=== PATIENT | male | born 1955 | race Caucasian/White ===

== ENCOUNTER 2021-02-16 14:36 | Inpatient (IN) | payer OTHER ==
[~2021-02-16] VITALS: Ht 177.8 cm; Wt 107.8 kg
[2021-02-16 16:08] LABS: BASOPHILS ABSOLUTE AUTO 0.03 K/mm3 (0.00-0.23); BASOPHILS PERCENT AUTO 0 % (0-2); EOSINOPHILS ABSOLUTE AUTO 0.02 K/mm3 (0.00-0.68); EOSINOPHILS PERCENT AUTO 0 % (0-6); Hematocrit 41.2 % (37.0-53.0); Hemoglobin 14.1 g/dL (13.5-17.5); IMMATURE GRAN ABSOLUTE AUTO 0.05 K/mm3 (0.00-0.10); IMMATURE GRAN PERCENT AUTO 0 % (0-1); LYMPHOCYTES PERCENT AUTO 9 % (21-46); MONOCYTES ABSOLUTE AUTO 0.97 K/mm3 (0.16-1.47); MONOCYTES PERCENT AUTO 8 % (4-13); Mean Corpuscular HGB 30.6 pg (26.0-34.0); Mean Corpuscular HGB Conc 34.2 g/dL (31.5-36.5); Mean Corpuscular Volume 89 fL (80-100); Mean Platelet Volume 11.5 fL (9.1-12.4); NEUTROPHILS ABSOLUTE AUTO 10.03 K/mm3 (1.96-9.15); NEUTROPHILS PERCENT AUTO 82 % (41-73); Platelet Count 121 K/mm3 (150-400); RDW Coefficient Variation 12.6 % (11.7-14.2); RDW Standard Deviation 41.8 fL (35.1-46.3); Red Blood Cell Count 4.61 M/mm3 (4.30-5.90)
[2021-02-16 16:20] LABS: International Normalized Ratio 1.16; Prothrombin Time Results 12.4 Sec (9.7-11.5)
[2021-02-16 16:42] LABS: Alanine Aminotransfer (ALT/SGP 31 U/L (12-78); Albumin, Blood 3.7 g/dL (3.4-5.0); Alk Phos 54 U/L (50-136); Anion Gap 7 mmol/L (6-16); Aspartate Aminotrans (AST/SGOT 29 U/L (12-37); Bilirubin, Total 0.6 mg/dL (0.1-1.0); Blood Urea Nitrogen 37 mg/dL (8-24); Bun/Creatinine Ratio 35.9 (12.0-20.0); CO2, Blood 22 mmol/L (21-32); Calcium, Blood 8.9 mg/dL (8.5-10.1); Chloride, Blood 108 mmol/L (98-108); Creatinine, Blood 1.03 mg/dL (0.60-1.20); Globulin, Blood 3.6 g/dL (2.2-4.0); Glomerular Filtration Rate >60 (60-); Glucose, Blood 205 mg/dL (70-99); Sodium, Blood 137 mmol/L (136-145); Total Protein, Blood 7.3 g/dL (6.4-8.2); Troponin I <0.015 ng/mL (0.000-0.040)
[2021-02-16] MEDS ORDERED: GABA100 PO (17:14)
[2021-02-16] MEDS ORDERED: METF500 PO (17:15)
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
--- NOTE | 2021-02-17 04:36 | NUR ---
CREEL CLERK SUMMARY PT RESTING, IN NAD. NO ACUTE CHANGES IN NEURO STATUS SINCE ARRIVAL TO MEDICAL FLOOR; PT DENIES QIU, NUMBNESS/TINGLING. NO CARDIAC EVENTS REPORTED OVERNIGHT. APPEARED TO SLEEP WELL T/O NIGHT. NO FURTHER EPISODES OF EMESIS. NO ACUTE NEEDS ASSESSED AT THIS TIME. CALL LIGHT, POSSESSIONS IN REACH, BED IN LOW AND LOCKED POSITION WITH ALARMS ON. WILL CONTINUE TO PROVIDE CARE UNTIL HANDOFF GIVEN TO ONCOMING RN.
[2021-02-17 05:51] LABS: BASOPHILS ABSOLUTE AUTO 0.05 K/mm3 (0.00-0.23); BASOPHILS PERCENT AUTO 0 % (0-2); EOSINOPHILS ABSOLUTE AUTO 0.05 K/mm3 (0.00-0.68); EOSINOPHILS PERCENT AUTO 0 % (0-6); Hematocrit 41.6 % (37.0-53.0); Hemoglobin 13.9 g/dL (13.5-17.5); IMMATURE GRAN ABSOLUTE AUTO 0.05 K/mm3 (0.00-0.10); IMMATURE GRAN PERCENT AUTO 0 % (0-1); LYMPHOCYTES ABSOLUTE AUTO 1.69 K/mm3 (0.84-5.20); LYMPHOCYTES PERCENT AUTO 15 % (21-46); MONOCYTES ABSOLUTE AUTO 0.98 K/mm3 (0.16-1.47); MONOCYTES PERCENT AUTO 8 % (4-13); Mean Corpuscular HGB 30.7 pg (26.0-34.0); Mean Corpuscular HGB Conc 33.4 g/dL (31.5-36.5); Mean Corpuscular Volume 92 fL (80-100); Mean Platelet Volume 11.2 fL (9.1-12.4); NEUTROPHILS ABSOLUTE AUTO 8.81 K/mm3 (1.96-9.15); NEUTROPHILS PERCENT AUTO 76 % (41-73); Platelet Count 113 K/mm3 (150-400); RDW Coefficient Variation 12.5 % (11.7-14.2); RDW Standard Deviation 42.5 fL (35.1-46.3); Red Blood Cell Count 4.53 M/mm3 (4.30-5.90); White Blood Cell Count 11.63 K/mm3 (4.00-11.30)
[2021-02-17 06:18] LABS: Alanine Aminotransfer (ALT/SGP 29 U/L (12-78); Albumin, Blood 3.4 g/dL (3.4-5.0); Alk Phos 52 U/L (50-136); Anion Gap 8 mmol/L (6-16); Aspartate Aminotrans (AST/SGOT 19 U/L (12-37); Bilirubin, Total 0.7 mg/dL (0.1-1.0); Blood Urea Nitrogen 34 mg/dL (8-24); Bun/Creatinine Ratio 30.6 (12.0-20.0); CHOL/HDL RATIO 2.4; CO2, Blood 22 mmol/L (21-32); Chloride, Blood 108 mmol/L (98-108); Cholesterol 101 mg/dL (50-200); Creatinine, Blood 1.11 mg/dL (0.60-1.20); Globulin, Blood 3.5 g/dL (2.2-4.0); Glomerular Filtration Rate >60 (60-); Glucose, Blood 176 mg/dL (70-99); HDL Cholesterol 42 mg/dL (>39); LDL/HDL RATIO 0.8; Low Density Lipoprotein Chol 33 mg/dL (0-110); Potassium, Blood 3.9 mmol/L (3.5-5.5); Sodium, Blood 138 mmol/L (136-145); Total Protein, Blood 6.9 g/dL (6.4-8.2); Triglycerides 130 mg/dL (30-160); Very Low Density Lipoprot Chol 26 mg/dL (6-32)
--- NOTE | 2021-02-18 02:26 | NUR ---
REPORT GIVEN TO BRANDO CORADO. NO ACUTE CHANGES SINCE CHANGE OF SHIFT. PATIENT ALTERT AND ORIENTED, ABLE TO MAKE NEEDS KNOWN. MEDICATED FOR NAUSEA X1. BED LOW AND LCOKED LUIS LIGHT WITHIN REACH, BED ALARM SET. HE IS A 1 PERSON SBA TO THE BATHROOM WITH WALKER.
--- NOTE | 2021-02-18 02:49 | NUR ---
RECEIVED REPORT FROM MICKIE SOLER. ASSUMED CARE OF PT. WILL PROVIDE CARE THE REST OF SHIFT.
--- NOTE | 2021-02-18 06:17 | NUR ---
SHIFT SUMMARY: A/O. KNOWS LIMITATIONS. USES CALL LT APPROPRIATELY. 1PA TO BR USING FWW. LEFT ARM FLACCID WITH L SIDE WEAKNESS. PT ABLE TO STAND AND WALK WITH ASSISTANCE. IMPROVING. MEDS WHOLE ONE AT A TIME WITH WATER. SINUS AT 74 WITH PAC'S. NO ACUTE CHANGES. PLAN IS SNF AT DISCHARGE. WILL CONTINUE TO PROVIDE CARE UNTIL SHIFT REPORT.
--- NOTE | 2021-02-18 17:25 | NUR ---
SHIFT SUMMARY PT AOX3; INTERMITTENT CONFUSION; FLACCID ON LEFT SIDE AND IMPULSIVE AT TIMES. PT AT BEDSIDE TODAY AND UPDATED. PT STATED THAT SHE WOULD LIKE FOR HIM TO RECOVER IN SNF. MEDICATED FOR NAUSEA X1. ON TELE NS. BED IS IN THE LOWEST POSITION AND CALL LIGHT WITHIN REACGH
--- NOTE | 2021-02-19 06:32 | NUR ---
SHIFT SUMMARY PT IS A 65 Y/O MALE, ADMITTED FOR CVA WITH L SIDE DEFICITS. LUE FLACCID, LLE MILD WEAKNESS, NO FACIAL DROOP NOTED. HE IS A&O X 4, 1PA TO THE BATHROOM. VITAL SIGNS STABLE, TELE DC'D. HE WAS MEDICATED ONCE FOR BACK PAIN WITH PRN FENTANYL. NO C/O NAUSEA OR SOB. NO ACUTE CHANGES IN PT CONDITION NOTED. WILL CONTINUE TO MONITOR AND TREAT PER EMAR UNTIL HAND OFF TO DAY SHIFT RN.
--- NOTE | 2021-02-19 17:37 | NUR ---
SHIFT SUMMARY PT AOX3; INTERMITTENT CONFUSION. FLACCID ON LEFT ARM, ABLE TO STAND WITH 1-2 PT ASSISTS WITH GB AND FWW. DENIES ANY PAIN OR SOB. BED IS IN THE LOWEST POSITON AND CALL LIGHT WITHIN REACH
--- NOTE | 2021-02-20 05:15 | NUR ---
SHIFT SUMMARY PT IS 65 Y/O MALE, ADMITTED FOR CVA. HE IS A&O X 3, 1PA OUT OF BED. L-SIDE WEAKNESS WITH LUE FLACCID AND LLE SLIGHTLY WEAKER THAN LEFT. NO C/O ACUTE PAIN, NAUSEA OR SOB. VITAL SIGNS STABLE. NO ACUTE CHANGES IN PT CONDITION NOTED. WILL CONTINUE TO MONITOR AND TREAT PER EMAR UNTIL HAND OFF TO DAY SHIFT RN.
[2021-02-20 16:35] LABS: SARS-Cov-2 (COVID-19) PCR, MMC NEGATIVE (NEGATIVE)
--- NOTE | 2021-02-20 19:45 | NUR ---
shift summary: pt a/o pleasant/cooperative. pt did well today. up to bathroom w/standby assist. covid test negative. plan is to dc tomorrow to snf. no acute concerns.
--- NOTE | 2021-02-21 06:45 | NUR ---
DISCHARGE UPDATE PT WILL BE LEAVING TODAY AT 10AM, DISCHARGE PAPERWORK AND PT COPY OF TRANSFER PAPERWORK PLACED IN FRONT OF PT CHART. WILL RELAY TO ONCOMING NURSE DURING BED HUDDLE.
--- NOTE | 2021-02-21 07:44 | NUR ---
SHIFT SUMMARY NO ACUTE CHANGES. PT ON ROOM AIR. VSS. BACK PAIN TREATED WITH TYLENOL AND HEATING PAD. LOOSE BM THIS AM. AMBULATES WITH 2 PERSON ASSIST, WALKER AND GAIT BELT, L SIDED WEAKNESS SECONDARY TO CVA.
[2021-02-21] MEDS ORDERED: AMLO5 PO (07:56)
[2021-02-21] MEDS ORDERED: ASPIR 8181 M1 PO (07:57)
[2021-02-21] MEDS ORDERED: LISI20 PO (07:57)
[2021-02-21] MEDS ORDERED: ATOR80 PO (07:57)
--- NOTE | 2021-02-21 10:49 | NUR ---
DISCHARGE SUMMARY PT DISCHARGE TO FACILITY THIS SHIFT AT 1001 VIA [facility]. REPORT GIVEN TO NURSE JAMA AT [facility]. PT AAOX4, ABLE TO MAKE NEEDS KNOWN. PLEASANT AND COOPERATIVE TO CARE. PT VERBALIZED UNDERSTANDING OF DISCHARGE INSTRUCTIONS AND ORDERS. NO C/O ANY PAIN OR ANY DISCOMFORT THIS SHIFT. DENIES ANY ISSUES OR COMPLAINTS PRIOR TO DC. IV DISCONTINUED PRIOR TO DISCHARGE. DISCHARGE PAPERWORK GIVEN TO PATIENT AND TRANSPORT STAFF PRIOR TO D/C.
== END 2021-02-21 10:45 | DRG 65 ==
LOC: ER 14:36 → MEDS 21:58
PROVIDERS: Internal Medicine; Student in an Organized Health Care Education/Training Program; ADMIT Internal Medicine
DX: I63.89 Other cerebral infarction (principal); G81.94 Hemiplegia, unspecified affecting left nondominant side; E11.51 Type 2 diabetes mellitus with diabetic peripheral angiopathy without gangrene; I10 Essential (primary) hypertension; Z95.1 Presence of aortocoronary bypass graft; I25.10 Atherosclerotic heart disease of native coronary artery without angina pectoris; Z79.84 Long term (current) use of oral hypoglycemic drugs; Z79.899 Other long term (current) drug therapy; Z87.891 Personal history of nicotine dependence; R29.810 Facial weakness; F10.10 Alcohol abuse, uncomplicated; Z20.822 Contact with and (suspected) exposure to COVID-19
CPT/HCPCS: 36415; 70450; 70496; 70498; 72141; 72146; 72148; 80053; 80061; 82550; 82947; 83036; 84484; 85025; 85610; 92610; 93005; 93010; 93306; 93925; 96374; 97110; 97112; 97116; 97162; 97166; 97535; 99285-25; A9270; J1650; J1815; J2405; J3010; J7030; Q9967; U0004

== ENCOUNTER 2021-06-10 12:42 | Emergency (ER) | payer OTHER, MEDICARE ==
[~2021-06-10] VITALS: Ht 182.9 cm; Wt 113.4 kg
[~2021-06-10 12:42] MED LIST: AMLO5 PO; ASPIR 8181 M1 PO; ATOR80 PO; GABA100 PO; LISI20 PO; METF500 PO
[2021-06-10] MEDS ORDERED: AMOCLA875 PO (14:30)
[2021-06-10] MEDS ORDERED: Norco 5-325 Ta1 EACH PO (14:41)
== END 2021-06-10 14:52 | disposition home or self-care (01) ==
LOC: ER 12:42
DX: S61.251A Open bite of left index finger without damage to nail, initial encounter (principal); Z23 Encounter for immunization; I10 Essential (primary) hypertension; E11.9 Type 2 diabetes mellitus without complications; Z79.84 Long term (current) use of oral hypoglycemic drugs; Z79.82 Long term (current) use of aspirin; Z79.899 Other long term (current) drug therapy; W54.0XXA Bitten by dog, initial encounter
CPT/HCPCS: 12001; 73140; 90471; 90714; 99283-25